=== PATIENT | female | born 1960 | race American Indian/Alaskan Native ===

== ENCOUNTER 2019-06-03 09:00 | Observation (INO) | payer BC ==
[2019-06-03] MEDS ORDERED: MORPHINE 4 MG/1 ML INJ IV ONE (09:26)
[2019-06-03] MEDS ORDERED: ONDANSETRON 4 MG/2 ML INJ IV ONE (09:26)
--- NOTE | 2019-06-03 09:30 | Emergency Department Report ---
ED General Adult HPI - General Chief complaint: Headache Stated complaint: HBP/VOMITING Time Seen by Provider: 06/03/19 09:18 Source: patient Mode of arrival: Ambulatory Limitations: No Limitations - History of Present Illness Initial comments: Patient is a 58-year-old F [place] female with a past medical history of hypertension diabetes and coronary artery disease who is presenting with acute headache. Patient states this morning when she woke up she was having intense headache that was 8 out of 10 in severity. It is global throbbing. States she is never had a headache to this magnitude. Patient approximately an hour and a half prior to arrival (8am) also was noted to have some difficulty finding her words and some slurred speech with left arm weakness. This was witnessed by a friend of hers that was with her. The difficulty speaking and slurred speech lasted approximately 30 minutes. Patient denies chest pain shortness of breath fevers chills neck stiffness nausea vomiting at this time. - Related Data Allergies Allergy/AdvReac Type Severity Reaction Status Date / Time No Known Allergies Allergy Unverified 06/03/19 09:09 ED Review of Systems ROS: Stated complaint: HBP/VOMITING Other details as noted in HPI Comment: All other systems reviewed and negative ED Past Medical Hx - Past Medical History Previous Medical History?: Yes Hx Hypertension: Yes Hx Diabetes: Yes - Surgical History Past Surgical History?: Yes Additional Surgical History: Cardiac stents - Social History Smoking Status: Unknown if ever smoked Substance Use Type: None ED Physical Exam - General Limitations: No Limitations General appearance: alert, in no apparent distress - Head Head exam: Present: atraumatic, normocephalic - Eye Eye exam: Present: normal appearance, PERRL, EOMI - ENT ENT exam: Present: mucous membranes moist - Neck Neck exam: Present: normal inspection - Respiratory Respiratory exam: Present: normal lung sounds bilaterally. Absent: respiratory distress, wheezes, rales, rhonchi - Cardiovascular Cardiovascular Exam: Present: regular rate, normal rhythm, normal heart sounds. Absent: systolic murmur, diastolic murmur, rubs, gallop - GI/Abdominal GI/Abdominal exam: Present: soft, normal bowel sounds. Absent: distended, tenderness, guarding, rebound - Extremities Exam Extremities exam: Present: normal inspection - Back Exam Back exam: Present: normal inspection - Neurological Exam Neurological exam: Present: alert, oriented X3, CN II-XII intact. Absent: motor sensory deficit - Psychiatric Psychiatric exam: Present: normal affect, normal mood - Skin Skin exam: Present: warm, dry, intact, normal color. Absent: rash ED Course Vital Signs 06/03/19 06/03/19 06/03/19 09:06 09:20 09:43 Temperature 97.9 F 97.6 F Pulse Rate 78 67 102 H Respiratory 18 22 16 Rate Blood Pressure 196/118 95/43 Blood Pressure [Right] O2 Sat by Pulse 95 100 98 Oximetry 06/03/19 06/03/19 06/03/19 09:45 10:09 10:11 Temperature Pulse Rate 75 70 71 Respiratory 19 15 18 Rate Blood Pressure 203/104 203/104 Blood Pressure 224/101 [Right] O2 Sat by Pulse 100 99 100 Oximetry 06/03/19 06/03/19 06/03/19 10:15 10:31 10:45 Temperature Pulse Rate 66 58 L 55 L Respiratory 13 20 16 Rate Blood Pressure 224/101 194/92 195/93 Blood Pressure [Right] O2 Sat by Pulse 100 100 98 Oximetry 06/03/19 11:19 Temperature Pulse Rate 65 Respiratory Rate Blood Pressure 186/88 Blood Pressure [Right] O2 Sat by Pulse Oximetry - Reevaluation(s) Reevaluation #1: 06/03/19 09:30 Patient's blood pressure is significantly elevated. Patient to be started on a Cardene drip. Patient because of her recent neurological deficits was placed on the suspected stroke protocol. ED Medical Decision Making - Lab Data Result diagrams: 06/03/19 09:52 06/03/19 09:52 Lab Results 06/03/19 06/03/19 06/03/19 Range/Units 09:17 09:52 09:52 WBC 5.6 (4.5-11.0) K/mm3 RBC 4.83 (3.65-5.03) M/mm3 Hgb 14.6 H (10.1-14.3) gm/dl Hct 43.6 H (30.3-42.9) % MCV 90 (79-97) fl MCH 30 (28-32) pg MCHC 34 (30-34) % RDW 14.2 (13.2-15.2) % Plt Count 220 (140-440) K/mm3 Lymph % (Auto) 40.4 H (13.4-35.0) % [place] % (Auto) 5.3 (0.0-7.3) % Eos % (Auto) 0.5 (0.0-4.3) % Baso % (Auto) 0.6 (0.0-1.8) % Lymph # 2.3 (1.2-5.4) K/mm3 [place] # 0.3 (0.0-0.8) K/mm3 Eos # 0.0 (0.0-0.4) K/mm3 Baso # 0.0 (0.0-0.1) K/mm3 Seg Neutrophils % 53.2 (40.0-70.0) % Seg Neutrophils # 3.0 (1.8-7.7) K/mm3 PT 12.3 (12.2-14.9) Sec. INR 0.91 (0.87-1.13) APTT 22.3 L (24.2-36.6) Sec. Thrombin Time 15.2 (15.1-19.6) Sec. Sodium (137-145) mmol/L Potassium (3.6-5.0) mmol/L Chloride (98-107) mmol/L Carbon Dioxide (22-30) mmol/L Anion Gap mmol/L BUN (7-17) mg/dL Creatinine (0.7-1.2) mg/dL Estimated GFR ml/min BUN/Creatinine Ratio % Glucose (65-100) mg/dL POC Glucose 160 H (70-105) Calcium (8.4-10.2) mg/dL Total Creatine Kinase (30-135) units/L CK-MB (CK-2) (0.0-4.0) ng/mL CK-MB (CK-2) Rel Index (0-4) Troponin T (0.00-0.029) ng/mL Urine Opiates Screen Urine Methadone Screen Ur Barbiturates Screen Ur Phencyclidine Scrn Ur Amphetamines Screen U Benzodiazepines Scrn Urine Cocaine Screen U Marijuana (THC) Screen Drugs of Abuse Note 06/03/19 06/03/19 Range/Units 09:52 Unknown WBC (4.5-11.0) K/mm3 RBC (3.65-5.03) M/mm3 Hgb (10.1-14.3) gm/dl Hct (30.3-42.9) % MCV (79-97) fl MCH (28-32) pg MCHC (30-34) % RDW (13.2-15.2) % Plt Count (140-440) K/mm3 Lymph % (Auto) (13.4-35.0) % [place] % (Auto) (0.0-7.3) % Eos % (Auto) (0.0-4.3) % Baso % (Auto) (0.0-1.8) % Lymph # (1.2-5.4) K/mm3 [place] # (0.0-0.8) K/mm3 Eos # (0.0-0.4) K/mm3 Baso # (0.0-0.1) K/mm3 Seg Neutrophils % (40.0-70.0) % Seg Neutrophils # (1.8-7.7) K/mm3 PT (12.2-14.9) Sec. INR (0.87-1.13) APTT (24.2-36.6) Sec. Thrombin Time (15.1-19.6) Sec. Sodium 140 (137-145) mmol/L Potassium 4.1 (3.6-5.0) mmol/L Chloride 99.7 (98-107) mmol/L Carbon Dioxide 25 (22-30) mmol/L Anion Gap 19 mmol/L BUN 13 (7-17) mg/dL Creatinine 0.7 (0.7-1.2) mg/dL Estimated GFR > 60 ml/min BUN/Creatinine Ratio 19 % Glucose 208 H (65-100) mg/dL POC Glucose (70-105) Calcium 10.3 H (8.4-10.2) mg/dL Total Creatine Kinase 898 H (30-135) units/L CK-MB (CK-2) 3.3 (0.0-4.0) ng/mL CK-MB (CK-2) Rel Index 0.3 (0-4) Troponin T < 0.010 (0.00-0.029) ng/mL Urine Opiates Screen Presumptive negative Urine Methadone Screen Presumptive negative Ur Barbiturates Screen Presumptive negative Ur Phencyclidine Scrn Presumptive negative Ur Amphetamines Screen Presumptive negative U Benzodiazepines Scrn Presumptive negative Urine Cocaine Screen Presumptive negative U Marijuana (THC) Screen Presumptive negative Drugs of Abuse Note Disclamer - EKG Data -: EKG Interpreted by Me EKG shows normal: sinus rhythm, axis, intervals, QRS complexes, ST-T waves Rate: normal - EKG Data Interpretation: normal EKG - Radiology Data CT HEAD WITHOUT CONTRAST HISTORY: MAIN: CODE STROKE CALL [phone] COMPARISON: None TECHNIQUE: CT imaging of the head was performed in the axial, sagittal, and coronal projections and bone algorithm in axial projection in the soft tissue algorithm. All CT scans at this location are performed using CT dose reduction for ALARA by means of automated exposure control. CONTRAST: None. FINDINGS: Cerebral and Cerebellar Hemispheres: No evidence of mass or mass effect. No midline shift. No acute hemorrhage. No acute cortical infarction. No extra-axial fluid collection. Ventricles: Normal in size and configuration for age. Osseous Structures: No significant abnormality. Visualized Paranasal Sinuses: No significant abnormality. Additional Findings: None IMPRESSION: 1. No acute intracranial abnormality. NOTE: Acute infarct may not be visible by noncontrast CT. CRITICAL RESULT: Code stroke Time of Discovery: 0940 Eastern times Zone Time of Communication: 0985 Licensed Practitioner Receiving Report: Dr. Arauz was notified of these findings personally by Dr. Dang Read Back Performed: Yes. Signer Name: Kenji Dang MD Signed: 06/03/2019 9:51 AM Workstation Name: [id number] Ordering Physician: EULLAIA ARAUZ MD Date of Service: 06/03/19 Procedure(s): CT angio neck Accession Number(s): [id number] cc: EULALIA ARAUZ MD CTA neck without and with intravenous contrast material Note: This study was performed at about 10:01 AM Eastern standard time (0901 Central standard time). Contrary to protocol, the technologist who performed the study did not notify me that the examination had been performed. [place] [id number] [place] standard [place]). CLINICAL HISTORY: stroke symptoms TECHNIQUE: Following acquisition of a timing bolus 0.625 mm thick contiguous axial scans were obtained from aortic arch to the skull base during rapid bolus intravenous contrast infusion. In addition to evaluation of axial source images multiplanar reconstructions were produced and reviewed for this report. 3 plane MIP reconstructions were produced and reviewed. FINDINGS: Drastic aorta: No abnormality is seen along the visualized course of the thoracic aorta or at the origins of the great vessels. Brachiocephalic artery and right subclavian artery have an unremark able appearance. Left subclavian artery has an unremarkable appearance. Right carotid artery: Right common carotid artery has an unremarkable appearance. Evaluation of the right carotid bifurcation reveals no indication of hemodynamically significant stenosis. Mild irregularity of the posterior aspect of the carotid bulb and proximal R ICA indicates presence of mild atherosclerotic change in these locations. There is no associated stenosis. Cervical segments of the R ICA have an otherwise unremarkable appearance. Left carotid artery: Soft plaque is seen along the course of the left common carotid artery in its mid section. Evaluation of the carotid bifurcations remarkable for mildly calcified atherosclerotic plaque along the lateral aspect of the left carotid bulb. There is no associated stenosis. Cervical segments of the LICA have a normal appearance. Normal and symmetrical vertebral arteries are present. There is no indication of stenosis along the course of the vertebral arteries. Both vertebral arteries contribute to the b asilar artery origin. The basilar artery has an unremarkable appearance. The degree of stenosis, if any, is determined utilizing NASCET like criteria. In this case there is no indication of hemodynamically significant stenosis at the carotid bifurcations or elsewhere.. Evaluation of the nonvascular soft tissue structures reveal no abnormality. There is no indication of cervical lymphadenopathy. No abnormalities are seen along the course of the airway. Visualized portions of the parotid glands and the submandibular salivary glands have a normal appearance. Thyroid gland has a normal appearance. Evaluation of the lung apices reveals no evidence of lung nodule or infiltrate. Evaluation of the cervical spine is remarkable for mild cervical spondylosis without central canal stenosis. IMPRESSION: 1. No indication of hemodynamically significant stenosis at the carotid bifu rcations or elsewhere. Contrast dose report: Omnipaque 350: 100 ml, administered intravenously All CT examinations performed at this facility utilize modulated dose reduction, iterative reconstruction or weight-based dosing, as appropriate, to obtain a radiation dose which is as low as can reasonably be achieved. Signer Name: King Sidhu MD Signed: 06/03/2019 11:17 AM Workstation Name: [id number] Ordering Physician: EULALIA ARAUZ MD Date of Service: 06/03/19 Procedure(s): CT angio head Accession Number(s): [id number] cc: EULALIA ARAUZ MD CTA head with intravenous contrast Note: This study was performed at about 10:01 AM Eastern standard time (0901 Central standard time). Contrary to protocol, the technologist who performed the study did not notify me that the examination had been performed. [place] [address] [place] standard [place]). CLINICAL HISTORY: stroke symptoms TECHNIQUE: 0.625 mm thick contiguous axial scans were obtained from the skull base to the skull vertex during rapid bolus administration of intravenous contrast material. Multiplanar reconstructions were produced in the coronal and sagittal planes. In addition 3 plane MIP instructions were produced and reviewed for this report. The axial source images and reconstructed images were reviewed for this report. All CT scans at this location are performed using CT dose reduction for [employer] by means of automated exposure control. FINDINGS: Calcified atherosclerotic plaque is observed along the course of the cavernous segments of both internal carotid arteries. There is no associated stenosis. The caliber of the intracranial vessels is normal throughout. There is no indication of intracranial stenosis or large vessel occlusion. There is no indication of vasculitis. There is no evidence of aneurysm or other vascular malformation. IMPRESSION: No abnormality on CTA head. CONTRAST DOSE REPORT: Omnipaque 350: 100 ml administered intravenously. Signer Name: King Sidhu MD Signed: 06/03/2019 11:10 AM Workstation Name: [id number] - Medical Decision Making Patient is a 58-year-old F [place] female who is presenting with headache and an increased blood pressure. Patient also had a episode of slurred speech prior to arrival. Patient's head CT is negative for acute CVA. Patient's current NIH is 0. Patient's blood pressure did improve to the 180s systolic after labetalol and pain management and the patient will be admitted for observation with the hospitalist. Critical Care Time: Yes (30) Critical care attestation.: If time is entered above; I have spent that time in minutes in the direct care of this critically ill patient, excluding procedure time. ED Disposition Clinical Impression: Hypertensive emergency without congestive heart failure, TIA (transient i schemic attack) Disposition: OP ADMIT IP TO THIS HOSP Is pt being admited?: Yes Does the pt Need Aspirin: Yes Condition: Stable Time of Disposition: 11:30
--- NOTE | 2019-06-03 09:55 | Cat Scan Report ---
CT HEAD WITHOUT CONTRAST HISTORY: MAIN: CODE STROKE CALL [phone] COMPARISON: None TECHNIQUE: CT imaging of the head was performed in the axial, sagittal, and coronal projections and bone algori thm in axial projection in the soft tissue algorithm. All CT scans at this location are performed using CT dose reduction for ALARA by means of automated e xposure control. CONTRAST: None. FINDINGS: Cerebral and Cerebellar Hemispheres: No evidence of mass or mass effect. No midline shift. No acute hemorrhage. No acute cortical infarction. No extra-axial fluid collection. Ventricles: Normal in size and configuration for age. Osseous Structures: No significant abnormality. Visualized Paranasal Sinuses: No significant abnormality. Additional Findings: None IMPRESSION: 1. No acute intracranial abnormality. NOTE: Acute infarct may not be visible by noncontrast CT. CRITICAL RESULT: Code stroke Time of Discovery: 939 [facility] Time of Communication: 0945 Licensed Practitioner Receiving Report: Dr. Arauz was notified of these findings personally by Dr. Wayne garcia Read Back Performed: Yes. Signer Name: Kenji Dang MD Signed: 06/03/2019 9:51 AM Workstation Name: [id number]
[2019-06-03 10:31] LABS: Basophils % (Auto) 0.6 % (0.0-1.8); Eosinophils % (Auto) 0.5 % (0.0-4.3); Hematocrit 43.6 % (30.3-42.9); Hemoglobin 14.6 gm/dl (10.1-14.3); Lymphocytes # (Auto) 2.3 K/mm3 (1.2-5.4); Lymphocytes % (Auto) 40.4 % (13.4-35.0); Mean Corpuscular HGB Conc 34 % (30-34); Mean Corpuscular Volume 90 fl (79-97); Monocytes # (Auto) 0.3 K/mm3 (0.0-0.8); Monocytes % (Auto) 5.3 % (0.0-7.3); Platelet Count 220 K/mm3 (140-440); Red Blood Count 4.83 M/mm3 (3.65-5.03); Red Cell Distribution Width 14.2 % (13.2-15.2)
[2019-06-03 10:41] LABS: Creatine Kinase MB 3.3 ng/mL (0.0-4.0); INR 0.91 (0.87-1.13); Partial Thromboplastin Time 22.3 Sec. (24.2-36.6); Thrombin Time 15.2 Sec. (15.1-19.6)
[2019-06-03 10:46] LABS: BUN/Creatinine Ratio 19; Blood Urea Nitrogen 13 mg/dL (7-17); Calcium 10.3 mg/dL (8.4-10.2); Hemolysis Index 4
[2019-06-03 10:51] LABS: Amphetamine Screen,Urine PRESUMPTIVE NEGATIVE; Benzodiazepines Screen,Urine PRESUMPTIVE NEGATIVE; Cannabinoid Screen,Urine PRESUMPTIVE NEGATIVE; Cocaine Screen,Urine PRESUMPTIVE NEGATIVE; Methadone Screen,Urine PRESUMPTIVE NEGATIVE; Opiate Screen,Urine PRESUMPTIVE NEGATIVE
--- NOTE | 2019-06-03 11:15 | Cat Scan Report ---
CTA head with intravenous contrast Note: This study was performed at about 10:01 AM Eastern standard time (0901 Central standard time). Contrary to protocol, the technologist who performed the study did not notify me that the examination had been performed. [place] [address] [place] standard [place]). CLINICAL HISTORY: stroke symptoms TECHNIQUE: 0.625 mm thick contiguous axial scans were obtained from the skull base to the skull vertex during ra pid bolus administration of intravenous contrast material. Multiplanar reconstructions were produced in the coronal and sagittal planes. In addition 3 plane MIP instructions were produced and reviewed f or this report. The axial source images and reconstructed images were reviewed for this report. All CT scans at this location are performed using CT dose reduction for ALARA by means of automated e xposure control. FINDINGS: Calcified atherosclerotic plaque is observed along the course of the cavernous segments of both inter nal carotid arteries. There is no associated stenosis. The caliber of the intracranial vessels is nor mal throughout. There is no indication of intracranial stenosis or large vessel occlusion. There is n o indication of vasculitis. There is no evidence of aneurysm or other vascular malformation. IMPRESSION: No abnormality on CTA head. CONTRAST DOSE REPORT: Omnipaque 350: 100 ml administered intravenously. Signer Name: King Sidhu MD Signed: 06/03/2019 11:10 AM Workstation Name: [id number]
--- NOTE | 2019-06-03 11:21 | Cat Scan Report ---
CTA neck without and with intravenous contrast material Note: This study was performed at about 10:01 AM Eastern standard time (0901 Central standard time). Contrary to protocol, the technologist who performed the study did not notify me that the examination had been performed. [place] [address] [place] CLINICAL HISTORY: stroke symptoms TECHNIQUE: Following acquisition of a timing bolus 0.625 mm thick contiguous axial scans were obtained from aort ic arch to the skull base during rapid bolus intravenous contrast infusion. In addition to evaluation of axial source images multiplanar reconstructions were produced and reviewed for this report. 3 [place] MIP reconstructions were produced and reviewed. FINDINGS: Drastic aorta: No abnormality is seen along the visualized course of the thoracic aorta or at the eh gins of the great vessels. Brachiocephalic artery and right subclavian artery have an unremarkable ap pearance. Left subclavian artery has an unremarkable appearance. Right carotid artery: Right common carotid artery has an unremarkable appearance. Evaluation of the r ight carotid bifurcation reveals no indication of hemodynamically significant stenosis. Mild irregula rity of the posterior aspect of the carotid bulb and proximal R ICA indicates presence of mild athero sclerotic change in these locations. There is no associated stenosis. Cervical segments of the R ICA have an otherwise unremarkable appearance. Left carotid artery: Soft plaque is seen along the course of the left common carotid artery in its mi d section. Evaluation of the carotid bifurcations remarkable for mildly calcified atherosclerotic [place] along the lateral aspect of the left carotid bulb. There is no associated stenosis. Cervical segm ents of the LICA have a normal appearance. Normal and symmetrical vertebral arteries are present. There is no indication of stenosis along the c ourse of the vertebral arteries. Both vertebral arteries contribute to the basilar artery origin. The basilar artery has an unremarkable appearance. The degree of stenosis, if any, is determined utilizing NASCET like criteria. In this case there is no indication of hemodynamically significant stenosis at the carotid bifurcations or elsewhere.. Evaluation of the nonvascular soft tissue structures reveal no abnormality. There is no indication of cervical lymphadenopathy. No abnormalities are seen along the course of the airway. Visualized porti ons of the parotid glands and the submandibular salivary glands have a normal appearance. Thyroid gla nd has a normal appearance. Evaluation of the lung apices reveals no evidence of lung nodule or infil trate. Evaluation of the cervical spine is remarkable for mild cervical spondylosis without central c anal stenosis. IMPRESSION: 1. No indication of hemodynamically significant stenosis at the carotid bifurcations or elsewhere. Contrast dose report: Omnipaque 350: 100 ml, administered intravenously All CT examinations performed at this facility utilize modulated dose reduction, iterative reconstruc tion or weight-based dosing, as appropriate, to obtain a radiation dose which is as low as can reason ably be achieved. Signer Name: King Sidhu MD Signed: 06/03/2019 11:17 AM Workstation Name: [id number]
--- NOTE | 2019-06-03 12:15 | History and Physical Report ---
History of Present Illness Chief complaint: My head hurts and my speech got slurred History of present illness: 58-year-old female with HTN, DM, CAD s/p stent placement presents to ED for evaluation. Patient states that she was in her usual state of health at bedtime around 2200 hrs. Patient states that she awoke from sleep this a.m. and experienced a headache as well as slurred speech. Patient acknowledges word finding difficulty as well as concomitant left arm weakness. Patient states that she was unable to lift her left arm and 1 dose unable to hold a coffee cup in her left hand. Patient states that headache was 8/10 in severity, throbbing in nature, intermittent, and resolved somewhat on the way to the hospital. Patient transported to [facility] via private vehicle for further care and evaluation. Patient seen and evaluated in the emergency department. Lab and imaging studies reviewed and the results discussed with patient and family. Patient found to have symptoms consistent with acute CVA as well as accelerated hypertension. Patient placed in observation status admitted to medical floor for further evaluation. Patient initiated on CVA protocol. Tele-neurology consulted in ED. Patient denies fever, chills, chest pain, palpitations, productive cough, bright red blood per rectum, loss of consciousness, falls, trauma, vertigo, seizure disorder, loss of bowel or bladder continence, or recent ill contacts. No prior admission for review. No medication listed at time of admission for reconciliation. Past History Past Medical History: CAD, diabetes, hypertension, other (See HPI) Past Surgical History: Other (Cardiac stent placement) Social history: single. denies: smoking, alcohol abuse, prescription drug abuse Family history: diabetes, hypertension Medications and Allergies Allergies Allergy/AdvReac Type Severity Reaction Status Date / Time No Known Allergies Allergy Unverified 06/03/19 09:09 Active Meds: Active Medications Aspirin (Aspirin) 325 mg PO QDAY FLORIAN Review of Systems Constitutional: no weight loss, no weight gain, no fever, no chills Ears, nose, mouth and throat: no ear pain, no ear discharge, no tinnitis, no decreased hearing, no nasal discharge Breasts: no change in shape, no swelling, no mass Cardiovascular: no chest pain, no palpitations, no rapid/irregular heart beat, no edema, no syncope Respiratory: no cough, no cough with sputum, no excessive sputum, no hemoptysis Gastrointestinal: no abdominal pain, no nausea, no vomiting, no diarrhea, no change in bowel habits Genitourinary Female: no pelvic pain, no flank pain, no menorrhagia, no dysuria, no urinary frequency, no urgency Rectal: no pain, no incontinence, no bleeding Musculoskeletal: no neck stiffness, no neck pain, no shooting arm pain, no arm numbness/tingling, no low back pain, no shooting leg pain Integumentary: no rash, no pruritis, no redness, no wounds, no jaundice Neurological: transient paralysis, weakness, numbness, headaches, change in speech, no tremors, no ataxia, no migraines, no convulsions Psychiatric: no anxiety, no memory loss, no change in sleep habits, no sleep disturbances, no insomnia, no hypersomnia, no change in appetite Hematologic/Lymphatic: no easy bruising, no easy bleeding, no lymphadenopathy Allergic/Immunologic: no urticaria, no allergic rhinitis, no wheezing, no persistent infections, no anaphylaxis, no angioedema Exam - Constitutional Vitals: Temp Pulse Resp BP Pulse Ox 97.6 F 67 14 152/84 97 06/03/19 09:43 06/03/19 11:45 06/03/19 11:45 06/03/19 11:45 06/03/19 11:45 General appearance: Present: no acute distress, well-nourished - EENT Eyes: Present: PERRL ENT: hearing intact, clear oral mucosa - Neck Neck: Present: supple, normal ROM - Respiratory Respiratory effort: normal Respiratory: bilateral: CTA - Cardiovascular Heart Sounds: Present: S1 & S2. Absent: rub, click - Extremities Extremities: pulses symmetrical, No edema Peripheral Pulses: within normal limits - Abdominal General gastrointestinal: Present: soft, non-tender, non-distended, normal bowel sounds Female genitourinary: Present: normal - Integumentary Integumentary: Present: clear, warm, dry - Musculoskeletal Musculoskeletal: gait normal, strength equal bilaterally - Psychiatric Psychiatric: appropriate mood/affect, intact judgment & insight - Neurologic Neurologic: CNII-XII intact, moves all extremities Results - Labs CBC & Chem 7: 06/03/19 09:52 06/03/19 09:52 Labs: Abnormal lab results 06/03/19 06/03/19 06/03/19 Range/Units 09:17 09:52 09:52 Hgb 14.6 H (10.1-14.3) gm/dl Hct 43.6 H (30.3-42.9) % Lymph % (Auto) 40.4 H (13.4-35.0) % APTT 22.3 L (24.2-36.6) Sec. Glucose (65-100) mg/dL POC Glucose 160 H (70-105) Calcium (8.4-10.2) mg/dL Total Creatine Kinase (30-135) units/L 06/03/19 Range/Units 09:52 Hgb (10.1-14.3) gm/dl Hct (30.3-42.9) % Lymph % (Auto) (13.4-35.0) % APTT (24.2-36.6) Sec. Glucose 208 H (65-100) mg/dL POC Glucose (70-105) Calcium 10.3 H (8.4-10.2) mg/dL Total Creatine Kinase 898 H (30-135) units/L Assessment and Plan - Patient Problems (1) CVA (cerebral vascular accident) Current Visit: Yes Status: Acute Qualifiers: Precerebral and cerebral artery: middle cerebral artery Laterality of affected vessel: right Plan to address problem: CVA protocol: Admit to medical floor, CT head, neuro check, aspiration precaution, seizure precautions, carotid Doppler, echo, physical therapy, Occupational Therapy, speech therapy, antiplatelet therapy, tele-neurology co nsulted in ED, neurology consulted. (2) Diabetes Current Visit: Yes Status: Acute Plan to address problem: Consistent carbohydrate diet,, sliding scale insulin therapy, Accu-Chek, hypoglycemia protocol. (3) Coronary artery disease Current Visit: Yes Status: Acute Qualifiers: Associated angina: without angina Plan to address problem: Risk factor reduction therapy, low-cholesterol diet, statin therapy, lipid panel. (4) Hypertensive emergency without congestive heart failure Current Visit: Yes Status: Acute Plan to address problem: Monitor blood pressure every shift, permissive hypertension overnight. Continue medical management. (5) DVT prophylaxis Current Visit: Yes Status: Acute Plan to address problem: SCD to bilateral lower extremities while in bed, patient is ambulatory.
[2019-06-03] MEDS ORDERED: METOCLOPRAMIDE 10 MG TAB PO PRN (12:20)
[2019-06-03] MEDS ORDERED: MAGNESIUM HYDROXIDE (MOM) ORAL LIQD UDC PO PRN (12:20)
[2019-06-03] MEDS ORDERED: PROMETHAZINE 25 MG RECT SUPP PR PRN (12:20)
[2019-06-03] MEDS ORDERED: ONDANSETRON 4 MG/2 ML INJ IV PRN (12:20)
[2019-06-03] MEDS ORDERED: ACETAMINOPHEN 325 MG TAB PO PRN (12:20)
[2019-06-03] MEDS: ASPIRIN 325 MG TAB PO SCH (15:01)
--- NOTE | 2019-06-03 18:11 | Progress Note ---
Subjective Date of service: 06/03/19 Interval history: new onset of severwe headaches that appear to be based on c spine issues checked over the chart will further assess thanks Objective - Vital Sign Vital Signs - 12hr 06/03/19 06/03/19 06/03/19 09:06 09:20 09:43 Temperature 97.9 F 97.6 F Pulse Rate 78 67 102 H Respiratory 18 22 16 Rate Blood Pressure 196/118 95/43 Blood Pressure [Right] O2 Sat by Pulse 95 100 98 Oximetry 06/03/19 06/03/19 06/03/19 09:45 10:09 10:11 Temperature Pulse Rate 75 70 71 Respiratory 19 15 18 Rate Blood Pressure 203/104 203/104 Blood Pressure 224/101 [Right] O2 Sat by Pulse 100 99 100 Oximetry 06/03/19 06/03/19 06/03/19 10:15 10:31 10:45 Temperature Pulse Rate 66 58 L 55 L Respiratory 13 20 16 Rate Blood Pressure 224/101 194/92 195/93 Blood Pressure [Right] O2 Sat by Pulse 100 100 98 Oximetry 06/03/19 06/03/19 06/03/19 11:01 11:15 11:19 Temperature Pulse Rate 66 59 L 65 Respiratory 11 L 13 Rate Blood Pressure 187/89 186/88 186/88 Blood Pressure [Right] O2 Sat by Pulse 100 100 Oximetry 06/03/19 06/03/19 06/03/19 11:30 11:45 12:01 Temperature Pulse Rate 67 67 74 Respiratory 10 L 14 15 Rate Blood Pressure 186/88 152/84 147/87 Blood Pressure [Right] O2 Sat by Pulse 100 97 99 Oximetry 06/03/19 06/03/19 06/03/19 12:15 12:30 12:45 Temperature Pulse Rate 62 59 L 77 Respiratory 19 18 15 Rate Blood Pressure 180/86 174/84 143/84 Blood Pressure [Right] O2 Sat by Pulse 100 99 98 Oximetry 06/03/19 06/03/19 06/03/19 13:01 13:15 13:30 Temperature Pulse Rate 64 67 59 L Respiratory 21 13 20 Rate Blood Pressure 160/83 167/84 156/81 Blood Pressure [Right] O2 Sat by Pulse 99 100 98 Oximetry 06/03/19 06/03/19 06/03/19 13:45 14:01 14:47 Temperature Pulse Rate 58 L 58 L Respiratory 17 16 Rate Blood Pressure 155/78 137/71 Blood Pressure [Right] O2 Sat by Pulse 98 98 97 Oximetry - Laboratory Findings CBC and BMP: 06/03/19 09:52 06/03/19 09:52 Abnormal Lab Findings: Abnormal Labs 06/03/19 06/03/19 06/03/19 09:17 09:52 09:52 Hgb 14.6 H Hct 43.6 H Lymph % (Auto) 40.4 H APTT 22.3 L Glucose POC Glucose 160 H Calcium Total Creatine Kinase 06/03/19 06/03/19 09:52 16:38 Hgb Hct Lymph % (Auto) APTT Glucose 208 H POC Glucose 247 H Calcium 10.3 H Total Creatine Kinase 898 H
[2019-06-03] MEDS: INSULIN LISPRO 100 UNIT/ML SUB-Q SCH (18:37)
[2019-06-03] MEDS ORDERED: PRAVASTATIN 40 MG TAB PO SCH (22:00)
[2019-06-04] MEDS: INSULIN LISPRO 100 UNIT/ML SUB-Q SCH ×2 (06:17)
--- NOTE | 2019-06-04 10:44 | Discharge Summary ---
Providers - Providers Date of Admission: 06/03/19 12:20 Attending physician: KIMBERLY WONG MD 06/03/19 12:20 Occupational Therapy Evaluate and Treat [CONS] Routine Comment: Reason For Exam: Neuro deficits Physical Therapy Evaluation and Treat [CONS] Routine Comment: Reason For Exam: Neuro deficits 06/03/19 12:22 Speech Therapy Evaluation and Treat [CONS] Routine Reason For Exam: cva 06/03/19 13:51 Consult to Physician [CONS] Routine Comment: Consulting Provider: DRAGAN SHAH Physician Instructions: Reason For Exam: cva 06/03/19 15:04 Consult to Dietitian/Nutrition [CONS] Routine Physician Instructions: Reason For Exam: Reason for Consult: Diet education Primary care physician: BUSINESS DEVELOPMENT ANALYST Hospitalization Reason for admission: Hypertensive urgency Condition: Stable Hospital course: 58-year-old female with HTN, DM, CAD s/p stent placement presents to ED for evaluation. Patient states that she was in her usual state of health at bedtime around 2200 hrs. Patient states that she awoke from sleep this a.m. and experienced a headache as well as slurred speech. Patient acknowledges word finding difficulty as well as concomitant left arm weakness. Patient states that she was unable to lift her left arm and 1 dose unable to hold a coffee cup in her left hand. Patient states that headache was 8/10 in severity, throbbing in nature, intermittent, and resolved somewhat on the way to the hospital. Patient transported to [facility] via private vehicle for further care and evaluation. Patient seen and evaluated in the emergency department. Lab and imaging studies reviewed and the results discussed with patient and family. Patient found to have symptoms consistent with acute CVA as well as accelerated hypertension. Patient placed in observation status admitted to medical floor for further evaluation. Patient initiated on CVA protocol. Tele-neurology consulted in ED. Patient denies fever, chills, chest pain, palpitations, productive cough, bright red blood per rectum, loss of consciousness, falls, trauma, vertigo, seizure disorder, loss of bowel or bladder continence, or recent ill contacts. No prior admission for review. No medication listed at time of admission for reconciliation. * Patient on admission underwent work-up for CVA which was negative symptoms are completely resolved with improvement in blood pressure. Mild headache of 1/10 in intensity with supine position still persist. Patient reports that this is much improved compared to admission. She denies any blurry vision. * She unfortunately self discontinued all her medication as she wanted to have an healthy lifestyle but stated that she just got into a new relationship and the person eats unhealthy with lots of fried food and should had not paid attention and feels that this was the culprit. Unfortunately when she discontinued her medication she did not keep a diary and given her extensive counseling about that at this time. * She will follow-up with her primary care physician and also with her brush clearer surveying could not give me much information about the stents except that it was done 2 years ago. I did advise her that she cannot stop her aspirin. She was also on cholesterol medication. And this is all been resumed in addition to blood pressure medications. Hypertensive urgency Gastroenteritis Headache Persistent nausea vomiting likely secondary to hypertension Diabetes mellitus with hyperglycemia Noncompliant CAD Disposition: TO HOME OR SELFCARE Time spent for discharge: 35-minute Core Measure Documentation - Palliative Care Palliative Care/ Comfort Measures: Not Applicable - Core Measures Any of the following diagnoses?: none Exam - Physical Exam Narrative exam: VITAL SIGNS: Reviewed. GENERAL: The patient appears normally developed, Vital signs as documented. HEAD: No signs of head trauma. EYES: Pupils are equal. Extraocular motions intact. EARS: Hearing grossly intact. MOUTH: Oropharynx is normal. NECK: No adenopathy, no JVD. CHEST: Chest with clear breath sounds bilaterally. No wheezes, rales, or r honchi. CARDIAC: Regular rate and rhythm. S1 and S2, without murmurs, gallops, or rubs. VASCULAR: No Edema. Peripheral pulses normal and equal in all extremities. ABDOMEN: Soft, non tender and non distended. No rebound or guarding, and no masses palpated. Bowel Sounds normal. MUSCULOSKELETAL: Good range of motion of all major joints. Extremities without clubbing, cyanosis or edema. NEUROLOGIC EXAM: Alert and oriented x 3 No focal sensory or strength deficits. Speech normal. Follows commands. PSYCHIATRIC: Mood normal. SKIN: detial exam as documented in skin assessment - Constitutional Vitals: Temp Pulse Resp BP Pulse Ox 98.0 F 67 18 123/70 99 06/04/19 05:10 06/04/19 08:51 06/04/19 05:10 06/04/19 05:10 06/04/19 05:10 Plan Activity: advance as tolerated, fall precautions Diet: low cholesterol, low salt, diabetic Special Instructions: record daily weights, record daily BP diary, record blood sugar diary Additional Instructions: Follow-up primary care physician Follow up with: PRIMARY MD RAFAEL [Primary Care Provider] - 3-5 Days CESARIO REYNOLDS MD [Staff Physician] - 7 Days Prescriptions: AtorvaSTATin [Lipitor] 40 mg PO QHS #30 tab Aspirin [Adult Aspirin] 81 mg PO DAILY #30 tablet. metFORMIN [Glucophage] 500 mg PO BID #60 tablet Lisinopril/Hydrochlorothiazide [Zestoretic 20-12.5 mg] 1 tab PO QDAY #30 tab
[2019-06-04] MEDS: ASPIRIN 325 MG TAB PO SCH (11:29)
[2019-06-04 12:15] VITALS: BP 157/87
--- NOTE | 2019-06-04 14:25 | Vascular Lab Report ---
Duplex carotid sonography with spectral analysis Indication: stroke Moderate carotid atherosclerotic changes are seen. In the right internal carotid artery no significant velocity elevations are seen to suggest a hemodyn amically-significant stenosis. Peak systolic velocity of the right ICA is 77 cm/s. In the left internal carotid artery no significant velocity elevations are seen to suggest a hemodyna mically-significant stenosis. Peak systolic velocity of the left ICA is 92 cm/s. Right ICA/CCA ratio: 0.72 Left ICA/CCA ratio: 0.71 Vertebral flow is antegrade bilaterally. Impression: No evidence of hemodynamically-significant stenosis by NASCET-type criteria. . Signer Name: James Wellington MD Signed: 06/04/2019 2:21 PM Workstation Name: [id number]
== END 2019-06-04 12:30 | disposition home or self-care (01) ==
LOC: ED 09:00 → 3A 12:20
PROVIDERS: ADMIT Internal Medicine; ATTEND Internal Medicine
DX: I63.9 Cerebral infarction, unspecified (principal); I16.0 Hypertensive urgency; I25.10 Atherosclerotic heart disease of native coronary artery without angina pectoris; K52.9 Noninfective gastroenteritis and colitis, unspecified; R11.2 Nausea with vomiting, unspecified; E11.65 Type 2 diabetes mellitus with hyperglycemia; I10 Essential (primary) hypertension; Z91.19 Patient's noncompliance with other medical treatment and regimen; Z95.5 Presence of coronary angioplasty implant and graft; Z79.82 Long term (current) use of aspirin; Z79.899 Other long term (current) drug therapy
CPT/HCPCS: 36415; 70450; 70496; 70498; 80048; 80307; 82550; 82553; 82962; 84484; 85025; 85610; 85670; 85730; 93005; 93010; 93306; 93880; 96372; 96374; 96375; 96376; 99291; A9270; G0378; J2270; J2405; Q9967; J1815

== ENCOUNTER 2019-07-22 01:48 | Emergency (ER) | payer BC ==
[2019-07-22 02:02] VITALS: BP 158/102
[2019-07-22 02:46] LABS: Hemoglobin 13.9 gm/dl (10.1-14.3); Mean Corpuscular HGB Conc 34 % (30-34); Mean Corpuscular Volume 90 fl (79-97); Platelet Count 260 K/mm3 (140-440); Red Blood Count 4.55 M/mm3 (3.65-5.03); Red Cell Distribution Width 13.4 % (13.2-15.2)
--- NOTE | 2019-07-22 02:56 | XRay Report ---
CHEST 1 VIEW 07/22/2019 2:27 AM INDICATION / CLINICAL INFORMATION: Chest Pain. COMPARISON: None available. FINDINGS: SUPPORT DEVICES: None. HEART / MEDIASTINUM: No significant abnormality. LUNGS / PLEURA: No significant pulmonary or pleural abnormality. No pneumothorax. ADDITIONAL FINDINGS: No significant additional findings. IMPRESSION: 1. No acute findings. Signer Name: Shawna Salter MD Signed: 07/22/2019 2:51 AM Workstation Name: [id number]
--- NOTE | 2019-07-22 03:15 | Emergency Department Report ---
ED Upper Extremity Inj HPI - General Chief Complaint: Extremity Injury, Upper Stated Complaint: CHEST PAIN Time Seen by Provider: 07/22/19 02:53 Source: patient Mode of arrival: Ambulatory Limitations: No Limitations - History of Present Illness Initial Comments: 58-year-old female presents to ED with left shoulder pain x2 days. Patient states pain is worse with range of motion of the left shoulder. She states the pain radiates down to her hand. Patient denies any numbness or tingling. She denies any trauma to her shoulder. She denies chest pain, shortness of breath, nausea, vomiting, diaphoresis. 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 She is unsure if this may have been the cause of her pain. MD Complaint: Injury to:: left, shoulder -: days(s) (2) Other Injuries: none Improves With: immobilization Worsens With: movement of extremity Associated Symptoms: denies: weakness, numbness, neck pain, nausea/vomiting, heard/felt popping sensat Treatments Prior to Arrival: other (tylenol) - Related Data Previous Rx's Medication Instructions Recorded Last Taken Type Aspirin [Adult Aspirin] 81 mg PO DAILY #30 tablet. 06/04/19 Unknown Rx AtorvaSTATin [Lipitor] 40 mg PO QHS #30 tab 06/04/19 Unknown Rx Lisinopril/Hydrochlorothiazide 1 tab PO QDAY #30 tab 06/04/19 Unknown Rx [Zestoretic 20-12.5 mg] metFORMIN [Glucophage] 500 mg PO BID #60 tablet 06/04/19 Unknown Rx Naproxen [Naprosyn] 500 mg PO BID #20 tablet 07/22/19 Unknown Rx methOCARBAMOL [Robaxin TAB] 500 mg PO Q8HR PRN #20 tablet 07/22/19 Unknown Rx traMADoL [Ultram] 50 mg PO Q6HR PRN #7 tablet 07/22/19 Unknown Rx Allergies Allergy/AdvReac Type Severity Reaction Status Date / Time No Known Allergies Allergy Unverified 06/03/19 09:09 ED Review of Systems ROS: Stated complaint: CHEST PAIN Other details as noted in HPI Comment: All other systems reviewed and negative Constitutional: denies: chills, fever Cardiovascular: denies: chest pain Musculoskeletal: as per HPI Neurological: denies: weakness, numbness ED Past Medical Hx - Past Medical History Previous Medical History?: Yes Hx Hypertension: Yes Hx Diabetes: Yes - Surgical History Past Surgical History?: Yes Additional Surgical History: Cardiac stents - Social History Smoking Status: Never Smoker Substance Use Type: Alcohol - Medications Home Medications: Home Medications Medication Instructions Recorded Confirmed Last Taken Type Aspirin [Adult Aspirin] 81 mg PO DAILY #30 tablet. 06/04/19 Unknown Rx AtorvaSTATin [Lipitor] 40 mg PO QHS #30 tab 06/04/19 Unknown Rx Lisinopril/Hydrochlorothiazide 1 tab PO QDAY #30 tab 06/04/19 Unknown Rx [Zestoretic 20-12.5 mg] metFORMIN [Glucophage] 500 mg PO BID #60 tablet 06/04/19 Unknown Rx Naproxen [Naprosyn] 500 mg PO BID #20 tablet 07/22/19 Unknown Rx methOCARBAMOL [Robaxin TAB] 500 mg PO Q8HR PRN #20 tablet 07/22/19 Unknown Rx traMADoL [Ultram] 50 mg PO Q6HR PRN #7 tablet 07/22/19 Unknown Rx ED Physical Exam - General Limitations: No Limitations General appearance: alert, in no apparent distress - Head Head exam: Present: atraumatic, normocephalic - Eye Eye exam: Present: normal appearance, EOMI - ENT ENT exam: Present: mucous membranes moist - Neck Neck exam: Present: normal inspection - Respiratory Respiratory exam: Present: normal lung sounds bilaterally. Absent: respiratory distress - Cardiovascular Cardiovascular Exam: Present: regular rate, normal rhythm - GI/Abdominal GI/Abdominal exam: Present: tenderness. Absent: distended - Extremities Exam Extremities exam: Present: normal inspection, tenderness (left shoulder with anterior tenderness and tenderness posteriorly along the scapula), normal capillary refill, other (radial pulses normal, release engineer strength normal, strength 5/5, sensation intact) - Neurological Exam Neurological exam: Present: alert, oriented X3. Absent: motor sensory deficit - Psychiatric Psychiatric exam: Present: normal affect, normal mood - Skin Skin exam: Present: warm, dry, intact, normal color. Absent: cyanosis, erythema ED Course Vital Signs 07/22/19 07/22/19 02:01 04:12 Temperature 97.9 F Pulse Rate 80 Respiratory 20 20 Rate Blood Pressure 158/102 O2 Sat by Pulse 97 98 Oximetry ED Medical Decision Making - Lab Data Result diagrams: 07/22/19 02:23 07/22/19 02:23 - EKG Data -: EKG Interpreted by Me EKG shows normal: sinus rhythm, axis, intervals, QRS complexes, ST-T waves Rate: normal - EKG Data When compared to previous EKG there are: no significant change (compared to 06/03/2019) - Radiology Data Radiology results: report reviewed, image reviewed - Medical Decision Making 58-year-old female with left shoulder pain, denies chest pain. On exam, patient has point tenderness in the anterior and posterior shoulder, and pain with range of motion of the shoulder. Cardiac work-up was done due to patient's history of CAD, however EKG and troponin are both normal. Chest x-ray is unremarkable. Patient given Toradol, which did help ease her pain. Patient states she has a private orthopedist that she sees and can follow-up with them. Prescriptions given. Will discharge home at this time. Return precautions given. - Differential Diagnosis tendinitis, ACS, PTX Critical care attestation.: If time is entered above; I have spent that time in minutes in the direct care of this critically ill patient, excluding procedure time. ED Disposition Clinical Impression: Left shoulder tendinitis Disposition: DC-01 TO HOME OR SELFCARE Is pt being admited?: No Condition: Stable Instructions: Rotator Cuff Tendinitis (ED) Prescriptions: Naproxen [Naprosyn] 500 mg PO BID #20 tablet methOCARBAMOL [Robaxin TAB] 500 mg PO Q8HR PRN #20 tablet PRN Reason: Muscle Spasm traMADoL [Ultram] 50 mg PO Q6HR PRN #7 tablet PRN Reason: Pain Referrals: PRIMARY CARE, [Primary Care Provider] - 3-5 Days Time of Disposition: 04:13
[2019-07-22] MEDS ORDERED: KETOROLAC 30 MG/1 ML INJ IM ONE (03:16)
[2019-07-22 03:44] LABS: BUN/Creatinine Ratio 32; Blood Urea Nitrogen 19 mg/dL (7-17); Calcium 9.7 mg/dL (8.4-10.2); Hemolysis Index 17
[2019-07-22 05:34] LABS: Basophils % (Manual) 0 % (0.0-1.8); Total Cells Counted 100
[2019-07-22 05:35] LABS: Platelet Estimate Consistent w Auto
== END 2019-07-22 05:02 | disposition home or self-care (01) ==
LOC: ED 01:48
DX: M77.9 Enthesopathy, unspecified (principal); I10 Essential (primary) hypertension; E11.9 Type 2 diabetes mellitus without complications
CPT/HCPCS: 36415; 71045; 80048; 84484; 85007; 85025; 93005; 93010; 96372; 99284; J1885

== ENCOUNTER 2019-08-03 13:51 | Emergency (ER) | payer BC ==
[2019-08-03] MEDS ORDERED: oxyCODONE /ACETAMINOPHEN 5-325MG TAB PO ONE (16:51)
[2019-08-03] MEDS ORDERED: KETOROLAC 60 MG/2 ML INJ IM ONE (16:51)
[2019-08-03] MEDS ORDERED: CYCLOBENZAPRINE 10 MG TAB PO ONE (16:52)
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
[2019-08-03 18:06] VITALS: BP 177/99
== END 2019-08-03 18:19 | disposition home or self-care (01) ==
LOC: ED 13:51
DX: S16.1XXA Strain of muscle, fascia and tendon at neck level, initial encounter (principal); M77.9 Enthesopathy, unspecified; I10 Essential (primary) hypertension; M79.602 Pain in left arm; E11.9 Type 2 diabetes mellitus without complications; I25.10 Atherosclerotic heart disease of native coronary artery without angina pectoris; Z79.899 Other long term (current) drug therapy; Z95.5 Presence of coronary angioplasty implant and graft; Z79.84 Long term (current) use of oral hypoglycemic drugs; Z79.82 Long term (current) use of aspirin; X58.XXXA Exposure to other specified factors, initial encounter; Y93.89 Activity, other specified; Y92.89 Other specified places as the place of occurrence of the external cause; Y99.8 Other external cause status
CPT/HCPCS: 96372; 99283; J1885